=== PATIENT | female | born 1980 | race Caucasian/White ===

== ENCOUNTER 2019-02-09 08:05 | Emergency (ER) | payer SELFPAY ==
[~2019-02-09] VITALS: Ht 154.9 cm; Wt 62.9 kg
[~2019-02-09 08:05] MED LIST: BENZ-6 PO; D-ME473S2 PO
[2019-02-09 08:08] VITALS: BP 126/79; PULSE 79; RESP 24; Ht 154.9 cm; Wt 62.9 kg
== END 2019-02-09 09:11 | disposition home or self-care (01) ==
LOC: FTE 08:05
DX: R05 Cough (principal); R07.89 Other chest pain
CPT/HCPCS: 71045; 93005